=== PATIENT | male | born 1935 | race Caucasian/White ===

== ENCOUNTER 2017-08-23 09:59 | Emergency (ER) | payer MEDICARE ==
[2017-08-23 11:56] LABS: #Eosinphils 0.1 thou/uL (0.0-0.7); #Lymphocytes 1.2 thou/uL (1.20-3.40); #Monocytes 0.4 thou/uL (0.11-0.59); #Neutrophils 3.3 thou/uL (1.40-6.50); %Basophils 0.8 % (0.0-1.0); %Eosinophils 1.4 % (0.0-10.0); %Lymphocytes 23.3 % (21.0-51.0); %Monocytes 8.2 % (0.0-10.0); Hematocrit 38.4 % (42.0-52.0); Red Blood Cell (RBC) Count 3.89 mill/uL (4.70-6.10); White Blood Cell (WBC) Count 4.9 thou/uL (4.8-10.8)
[2017-08-23 12:19] LABS: Lactic Acid - Sepsis 0.8 mmol/L (0.5-2.2)
[2017-08-23 12:23] LABS: ALT (SGPT) 15 U/L (8-55); AST (SGOT) 18 U/L (5-34); Alkaline Phosphatase 56 U/L (40-150); Anion Gap 12 mmol/L (10-20); BUN (Urea Nitrogen) 21 mg/dL (8.4-25.7); Bilirubin, Total 0.9 mg/dL (0.2-1.2); Calc. Creatinine Clearance 0 mL/min (70-130); Calcium 9.2 mg/dL (7.8-10.44); Carbon Dioxide 26 mmol/L (23-31); Chloride 105 mmol/L (98-107); Estimated GFR-MDRD 73; Globulin 2.6 g/dL (2.4-3.5); Lipase 22 U/L (8-78); Protein, Total 6.3 g/dL (5.8-8.1)
[2017-08-23 12:26] LABS: Troponin I Less than 0.010 ng/mL (< 0.028)
--- NOTE | 2017-10-19 10:39 | EKG ---
Test Reason : DIZZINESS Blood Pressure : / mmHG Vent. Rate : 070 BPM Atrial Rate : 070 BPM P-R Int : 170 ms QRS Dur : 174 ms QT Int : 440 ms P-R-T Axes : 099 -63 093 degrees QTc Int : 475 ms AV sequential or dual chamber electronic pacemaker Confirmed by GERSON MAN M.D. ([id number]), editor newspaper [employer] ([id number]) on 10/19/2017 10:39:03 AM Referred By: Confirmed By:GERSON MAN M.D.
== END 2017-08-23 13:15 | disposition home or self-care (01) ==
LOC: ERS 09:59
DX: H93.19 Tinnitus, unspecified ear (principal); E78.5 Hyperlipidemia, unspecified; I10 Essential (primary) hypertension
CPT/HCPCS: 36415; 80053; 82553; 83605; 83690; 84484; 85025; 93005